=== PATIENT | female | born 1980 | race Caucasian/White ===

== ENCOUNTER 2018-07-10 14:02 | Observation (INO) | payer BC ==
[~2018-07-10] VITALS: Ht 177.8 cm; Wt 127.9 kg
[~2018-07-10 14:02] MED LIST: CIPRO500 MG PO; CLINDAMYCIN HC300 MG PO; LORTAB 7.5-5001 EACH PO
[2018-07-10] MEDS ORDERED: KETOROLAC TROMETHAMINE 30 MG/ML VIAL IV NR (15:15)
[2018-07-10] MEDS ORDERED: SODIUM CHLORIDE 0.9% 1000ML 1,000 ML IV ONE (15:15)
[2018-07-10] MEDS ORDERED: SODIUM CHLORIDE 0.9% 1000ML 1,000 ML ONE (15:15)
[2018-07-10] MEDS ORDERED: ONDANSETRON HCL INJ 2MG/ML 2ML 2 MG/ML VIAL IV NR (15:30)
[2018-07-10 15:37] LABS: EOSINOPHILS % 0.1 % (0.0-6.0); HEMATOCRIT 42.6 % (34.2-44.1); HEMOGLOBIN 14.4 g/dL (12.0-16.0); LYMPHOCYTES % 1.6 % (18.0-39.1); MEAN CORPUSCULAR HEMOGLOBIN 28.6 pg (28-32); MEAN CORPUSCULAR HGB CONC 33.8 g/dL (31-35); MEAN CORPUSCULAR VOLUME 84.7 fL (81-99); MONOCYTES % 0.9 % (4.4-11.3); PLATELET COUNT 411 x10e3/uL (140-360); RED BLOOD COUNT 5.03 x10e6/uL (3.6-5.1); RED CELL DISTRIBUTION WIDTH 13.5 % (11.7-14.4)
[2018-07-10 15:52] LABS: BILIRUBIN,URINE NEGATIVE (NEGATIVE); CLARITY,URINE HAZY (CLEAR); COLOR,URINE YELLOW (YELLOW); KETONES,URINE 3+ (NEGATIVE); LEUKOCYTE ESTERASE ,URINE NEGATIVE (NEGATIVE); NITRITE,URINE NEGATIVE (NEGATIVE); PROTEIN,URINE DIPSTICK NEGATIVE (NEGATIVE); URINE UROBILINOGEN 0.2 mg/dL (0.2 - 1)
[2018-07-10 15:53] LABS: PREGNANCY TEST, URINE NEGATIVE (NEGATIVE)
[2018-07-10 15:57] LABS: AMORPHOUS SEDIMENT,URINE MODERATE (FEW); BACTERIA,URINE MANY /HPF; EPITHELIAL CELLS,URINE MANY /LPF; MUCUS,URINE MODERATE (RARE)
[2018-07-10] MEDS ORDERED: MORPHINE SULFATE INJ 4 MG/ML INJ 1ML ONE (15:58)
[2018-07-10 15:59] LABS: ALANINE AMINOTRANSFERASE 75 IU/L (0-55); ALBUMIN/GLOBULIN RATIO 1.1 (0.8-2.0); ALKALINE PHOSPHATASE 100 IU/L (40-150); ANION GAP 17.6 mmol/L (8-16); BLOOD UREA NITROGEN 12 mg/dL (7-26); BUN/CREATININE RATIO 16 (6-25); CALCIUM 10.5 mg/dL (8.4-10.2); CARBON DIOXIDE 18 mmol/L (22-29); CHLORIDE 105 mmol/L (98-107); CREATININE, SERUM 0.76 mg/dL (0.57-1.11); EST GLOMERULAR FILTRATION RATE > 60 ML/MIN (60-); GLUCOSE 133 mg/dL (74-118); POTASSIUM 3.6 mmol/L (3.5-5.1); SODIUM 137 mmol/L (136-145)
[2018-07-10] MEDS ORDERED: MORPHINE SULFATE INJ 4 MG/ML INJ 1ML IV NR ×2 (16:00→19:00)
[2018-07-10] MEDS ORDERED: SODIUM CHLORIDE 0.9% 50ML 50 ML ONE (17:22)
[2018-07-10] MEDS ORDERED: IOPAMIDOL 370 MG/ML 200 ML INFUS..BTL INJ ONE (17:22)
--- NOTE | 2018-07-10 17:28 | Diagnostic Imaging Report ---
EXAMINATION: CT of the abdomen and pelvis with contrast. TECHNIQUE: Helical CT images of the abdomen and pelvis were performed from the lung bases to the lesser trochanters after the intravenous administration of 100 cc of Omnipaque 300 and the oral administration of none. Coronal and sagittal reformatted images were obtained.Dose modulation, iterative reconstruction, and/or weight based adjustment of the mA/kV was utilized to reduce the radiation dose to as low as reasonably achievable. COMPARISON: None. CLINICAL HISTORY:Severe abdominal pain DISCUSSION: ABDOMEN/PELVIS: LOWER THORAX:Unremarkable. HEPATOBILIARY: No focal hepatic lesions. No intra-or extrahepatic biliary ductal dilation. The gallbladder is normal. SPLEEN: No splenomegaly. PANCREAS: No focal masses or ductal dilatation. ADRENALS: No adrenal nodules. KIDNEYS/URETERS: No hydronephrosis, stones, or solid mass lesions. PELVIC ORGANS/BLADDER: The bladder is normal. PERITONEUM/RETROPERITONEUM: No free air or fluid. LYMPH NODES: No intra-abdominal, retroperitoneal, pelvic or inguinal lymphadenopathy. VESSELS: The celiac trunk,superior and inferior mesenteric and bilateral renal arteries are patent The portal, superior mesenteric and splenic veins are patent. GI TRACT: Appendix mildly dilated measuring 9 mm with adjacent stranding. Lap Band appropriate position. BONES AND SOFT TISSUE: No bony destructive lesions. No soft tissue abnormalities. IMPRESSION: Acute uncomplicated appendicitis. Signed by: Dr. Cash Rosenthal M.D. on 07/10/2018 5:25 PM
[2018-07-10] MEDS ORDERED: CEFTRIAXONE SOD 1 GM/NS 50 ML 50 ML IV ONE (18:45)
--- NOTE | 2018-07-10 19:27 | NUR ---
report to armani
--- OUTSIDE RECORDS SUMMARY | 2018-07-10 19:37 | XMS REPORT ---
Author Author [facility] Address Unknown Phone Unavailable Care Team Providers Care Tooth Polisher Name Role Phone Mary CM Unavailable Unavailable Problems This patient has no known problems. Allergies, Adverse Reactions, Alerts This patient has no known allergies or adverse reactions. Medications This patient has no known medications. Results Test Description Test Time Test Comments Text Results Atomic Results Result Comments CT ABDOMEN/PELVIS W 2018-07-10 17:21:00 [facility] [address] [place] [address] Patient Name: LAVELLE KRAUSE MR #: [id number] : 1980 Age/Sex: 37/F Req #: [id number] Adm Physician: Ordered by: DESIREE CM MD Report #: [id number] Location: ER Room/Bed: Procedure: [id number] CT/CT ABDOMEN/PELVIS W Exam Date: Exam Time: REPORT STATUS: Signed EXAMINATION: CT of the abdomen and pelvis with contrast. TECHNIQUE: Helical CT images of the abdomen and pelvis were performed from the lung bases to the lesser trochanters after the intravenous administration of 100 cc of Omnipaque 300 and the oral administration of none. Coronal and sagittal reformatted images were obtained.Dose modulation, iterative reconstruction, and/or weight based adjustment of the mA/kV was utilized to reduce the radiation dose to as low as reasonably achievable. COMPARISON: None. CLINICAL HISTORY:Severe abdominal pain DISCUSSION: ABDOMEN/PELVIS: LOWER THORAX:Unremarkable. HEP ATOBILIARY: No focal hepatic lesions. No intra-or extrahepatic biliary ductal dilation. The gallbladder is normal. SPLEEN: No splenomegaly. PANCREAS: No focal masses or ductal dilatation. ADRENALS: No adrenal nodules. KIDNEYS/URETERS: No hydronephrosis, stones, or solid mass lesions. PELVIC ORGANS/BLADDER: The bladder is normal. PERITONEUM/RETROPERITONEUM: No free air or fluid. LYMPH NODES: No intra- abdominal, retroperitoneal, pelvic or inguinal lymphadenopathy. VESSELS: The celiac trunk,superior and inferior mesenteric and bilateral renal arter ies are patent The portal, superior mesenteric and splenic veins are patent. GI TRACT: Appendix mildly dilated measuring 9 mm with adjacent stranding. Lap Band appropriate position. BONES AND SOFT TISSUE: No bony destructive lesions. No soft tissue abnormalities. IMPRESSION: Acute uncomplicated appendicitis. Signed by: Dr. Franca Olvera M.D. on 07/10/2018 5:25 PM Dictated By: FRANCA OLVERA MD 172 Transcribed By: ULICES on 07/10/181724 COPY TO: DESIREE CM MD
[2018-07-10 20:00] VITALS: BP 136/94
[2018-07-10] MEDS ORDERED: ACETAMINOPHEN 325 MG TAB PO PRN (20:00)
--- NOTE | 2018-07-10 20:00 | NUR ---
Got report from Jenny, ER nurse. Patient came to unit via wheelchair. Patient is A&Ox3. Call light within reach.
[2018-07-10 20:34] VITALS: BP 136/94
[2018-07-10 21:00] VITALS: BP 136/94
[2018-07-10] MEDS: SODIUM CHLORIDE 0.9% 1000ML 1,000 ML IV SCH (21:33)
[2018-07-10] MEDS: PIPER-TAZ 3.375 GM 50 ML IV SCH (21:33)
[2018-07-10] MEDS: HYDROMORPHONE 2MG/ML 2 MG/ML ML IV PRN (21:37)
[2018-07-10] MEDS: ONDANSETRON HCL INJ 2MG/ML 2ML 2 MG/ML VIAL IV PRN (21:37)
[2018-07-11] VITALS (8 sets, daily range): BP systolic 109–133; BP diastolic 55–72
[2018-07-11] MEDS: HYDROMORPHONE 2MG/ML 2 MG/ML ML IV PRN ×4 (01:20→17:12)
[2018-07-11] MEDS: PIPER-TAZ 3.375 GM 50 ML IV SCH ×3 (05:45→21:10)
[2018-07-11] MEDS: ONDANSETRON HCL INJ 2MG/ML 2ML 2 MG/ML VIAL IV PRN (05:45)
[2018-07-11] MEDS: SODIUM CHLORIDE 0.9% 1000ML 1,000 ML IV SCH ×3 (06:00→21:10)
--- NOTE | 2018-07-11 07:02 | NUR ---
Gave report to oncoming nurse. Call light within reach. patient in bed.
--- NOTE | 2018-07-11 07:45 | NUR ---
patient leaving unit for procedure, alert and oriented.
[2018-07-11] MEDS ORDERED: BUPIVACAINE HCL 0.5% INJ 30 ML VIAL INJ ONE (08:29)
[2018-07-11] MEDS ORDERED: ONDANSETRON HCL INJ 2MG/ML 2ML 2 MG/ML VIAL IV PRN (09:30)
[2018-07-11] MEDS ORDERED: MORPHINE SULFATE 5 MG/ML VIAL IV PRN (09:30)
[2018-07-11] MEDS ORDERED: HYDROMORPHONE 2MG/ML 2 MG/ML ML ONE (09:58)
--- NOTE | 2018-07-11 10:36 | NUR ---
patient returned to floor via stretcher, alert and oriented. call guillen within reach and bed in lowest position.
--- NOTE | 2018-07-11 13:55 | Consultation ---
DATE OF CONSULTATION: 07/11/2018 HISTORY OF PRESENT ILLNESS: The patient is a 37-year-old female, who presents with complaints of abdominal pain which started yesterday. The patient says the pain is in right lower quadrant. She has had associated nausea. She came to the emergency room. Evaluation with CT scan of the abdomen and pelvis revealed findings suggestive of acute appendicitis. The patient has not had similar symptoms in the past. PAST MEDICAL HISTORY: Significant for previous lap band and bunion surgery. She has no chronic medical problems. ALLERGIES: SULFA AND THERE WERE NO HOME MEDICATIONS. FAMILY HISTORY: Noncontributory. SOCIAL HISTORY: The patient does not smoke cigarettes or drink alcohol. REVIEW OF SYSTEMS: As stated above, otherwise was negative. PHYSICAL EXAMINATION: GENERAL: The patient is awake and alert, in no distress. VITAL SIGNS: Normal. She is afebrile. HEENT: Unremarkable. Sclerae are not icteric. NECK: Supple. No masses. LUNGS: Equal breath sounds are clear bilaterally. CARDIAC: Regular rate and rhythm. Normal S1, S2 without murmur, S3, or S4. There is no jugular venous distention. ABDOMEN: Tender in the right lower quadrant with signs of peritonitis localized to right lower quadrant. There is no mass. EXTREMITIES: Warm. There was no edema. Pulses were palpable. NEUROLOGIC: Intact. ASSESSMENT: A 37-year-old female with acute appendicitis. She will benefit from appendectomy. She will plan to schedule for today. Procedure was explained to the patient including risks, benefits, and alternatives. She understands the procedure. She had the opportunity to ask questions. She is aware of the possible need for open surgery. Thank you for asking us see Ms. Coppola. MD JOSEPH Peres/MODL /[id number]
[2018-07-11] MEDS ORDERED: DESFLURANE 240 ML BTL INH ONE (14:06)
[2018-07-11] MEDS ORDERED: SUCCINYLCHOLINE 200 MG/10 ML SYR ONE (14:06)
[2018-07-11] MEDS ORDERED: DEXAMETHASONE SOD PHOS INJ 4 MG/ML VIAL ONE (14:06)
[2018-07-11] MEDS ORDERED: LIDOCAINE HCL 2% LOCAL INJ 5 ML SDV VIAL INJ ONE (14:06)
[2018-07-11] MEDS ORDERED: PROPOFOL IV EMULSION 10 MG/ML 20 ML VIAL ONE (14:06)
[2018-07-11] MEDS ORDERED: ONDANSETRON HCL INJ 2MG/ML 2ML 2 MG/ML VIAL ONE (14:06)
[2018-07-11] MEDS ORDERED: MIDAZOLAM HCL 2 MG/2 ML VIAL ONE (14:16)
[2018-07-11] MEDS ORDERED: FENTANYL CITRATE/PF 100MCG/2 ML INJ ONE (14:16)
--- NOTE | 2018-07-11 15:36 | Operative Report ---
DATE OF PROCEDURE: 07/11/2018 SURGEON: Yemi Lowe MD PREOPERATIVE DIAGNOSIS: Acute appendicitis. POSTOPERATIVE DIAGNOSIS: Acute appendicitis. PROCEDURES: Diagnostic laparoscopy, laparoscopic appendectomy. MENTAL RETARDATION AIDE: None. ANESTHESIA: General. INDICATIONS AND FINDINGS: The patient is a 37-year-old female, who presents with complaints of abdominal pain for one day. Workup revealed probable acute appendicitis. Surgery, patient with acutely inflamed retrocecal appendicitis. TECHNIQUE: After adequate general endotracheal anesthesia with the patient in supine position the abdomen was prepped and draped in sterile fashion with ChloraPrep solution. Skin in the umbilicus was infiltrated with 0.5% Marcaine. Incision made in the umbilicus, abdominal wall was elevated and Veress needle was introduced. Pneumoperitoneum was then created. A 10 mm trocar and cannula was then passed through the umbilical wound. Laparoscopic camera was introduced. Initial laparoscopy revealed no free fluid. Liver appeared normal. The catheter from the lap band was seen. A 12 mm trocar and cannula was placed suprapubically and a 5 mm trocar and cannula placed in the right upper quadrant. Cecum was identified. The appendix was seen to be retrocecal. The cecum was mobilized by dividing the peritoneal attachments. The base of the appendix was identified and cecum was elevated. A window was created between the base of the appendix and mesoappendix. The base of the appendix was divided close to the cecum with Endo-EDMOND stapler. The mesoappendix was then divided with LigaSure device freeing the appendix completely. Once it was completely free, it was placed into an Endopouch and brought out through the suprapubic cannula. Care was taken to not touch the abdominal wall. The appendectomy was inspected for hemostasis, which was seen to be adequate. It was irrigated with saline. All fluid aspirated, inspected once again for hemostasis which was seen to be adequate. Instruments and cannulas were then removed. Pneumoperitoneum was evacuated. Wounds were then closed. Fascia in the umbilical and suprapubic wounds closed with 0-Vicryl. Skin to all wounds closed with bar. Sterile dressings applied to each wound. The patient tolerated the procedure well. Estimated blood loss was 15 mL. There were no complications. All counts were correct. The patient was taken to the recovery room in satisfactory condition. MD JOSEPH Peres/BRITL /[id number] cc: Abilio Kay MD
[2018-07-11] MEDS: HYDROCODONE/APAP 5MG-325MG TAB PO PRN ×2 (18:42→23:05)
--- NOTE | 2018-07-11 18:45 | NUR ---
rounded with swaging machine adjuster nurse, patient aware of change. call guillen within reach and bed in lowest position.
[2018-07-12 00:05] VITALS: BP_SYST 106; BP_SYST 149; BP_DIAS 57; BP_DIAS 71
[2018-07-12 04:58] VITALS: BP 113/57
[2018-07-12] MEDS: PIPER-TAZ 3.375 GM 50 ML IV SCH (05:03)
[2018-07-12] MEDS: HYDROCODONE/APAP 5MG-325MG TAB PO PRN ×3 (05:07→12:32)
[2018-07-12 07:00] VITALS: BP 131/71
--- NOTE | 2018-07-12 07:40 | NUR ---
report received from shift commander nurse, patient aware of change and in no distress. call guillen within reach and bed in lowest position.
[2018-07-12] MEDS: SODIUM CHLORIDE 0.9% 1000ML 1,000 ML IV SCH (12:00)
[2018-07-12 12:35] VITALS: BP 144/67
[2018-07-12] MEDS ORDERED: ULTRACET TABLE1 EACH PO (12:48)
--- NOTE | 2018-07-12 13:00 | NUR ---
patient alert and oriented. discharge instructions given at this time, patient verbalized understanding. IV discontinued, catheter in tact and small dressing applied. Patient refused wheelchair assistance and will be escorted to personal auto for significant other to drive home.
--- NOTE | 2018-07-14 05:42 | Discharge Summary ---
DISCHARGE DIAGNOSES: 1. Acute appendicitis. 2. Status post laparoscopic appendectomy with Dr. Lowe. COMPLICATIONS: None. DISCHARGE FOLLOW UP: In [address] Lowe. HISTORY OF PRESENT ILLNESS AND HOSPITAL COURSE: See hospital chart for full details. The patient is a young lady who presented lady with acute abdominal pain, where she is found to have acute appendicitis. She was placed on IV antibiotics. The pain did not resolve and was then taken to the OR by Dr. Lowe who performed a laparoscopic appendectomy without any complications. She was monitored overnight postoperatively where she did very well, felt much better and she is able to be discharged home once Dr. Lowe felt it. Follow up in two weeks with Dr. Lowe. Please see hospital chart for full details. MD STEVE Nick/VANNESSA /[id number]
== END 2018-07-12 13:07 | disposition home or self-care (01) ==
LOC: ER 14:02 → ERHOLD 19:34 → IMCU 20:15 → MED/SURG 07-12 10:02
PROVIDERS: ADMIT Internal Medicine; ATTEND Internal Medicine
DX: K35.80 Unspecified acute appendicitis (principal)
CPT/HCPCS: 36415; 44970; 74177; 80053; 81001; 81025; 85025; 88304; 96374; 96375; 96376; 99284; G0378 ×3; J0696; J1100; J1170 ×2; J1885; J2001; J2250; J2270 ×2; J2405 ×2; J2543 ×3; J2704; J7030 ×3; Q9967

== ENCOUNTER 2018-11-01 11:03 | Emergency (ER) | payer BC ==
[~2018-11-01] VITALS: Ht 175.3 cm; Wt 117.9 kg
[~2018-11-01 11:03] MED LIST changes: +ULTRACET TABLE1 EACH PO
[2018-11-01] MEDS ORDERED: KETOROLAC TROMETHAMINE 60 MG/2 ML VIAL IM NR (11:15)
[2018-11-01] MEDS ORDERED: HYDROCODONE/APAP 10MG-325MG TAB PO NR (11:15)
[2018-11-01] MEDS ORDERED: CYCLOBENZAPRINE HCL 10 MG TAB PO NR (11:15)
[2018-11-01] MEDS ORDERED: LIDOCAINE 5% PATCH TP ONE (11:15)
[2018-11-01 11:31] LABS: BILIRUBIN,URINE NEGATIVE (NEGATIVE); CLARITY,URINE CLEAR (CLEAR); COLOR,URINE YELLOW (YELLOW); KETONES,URINE 1+ (NEGATIVE); LEUKOCYTE ESTERASE ,URINE NEGATIVE (NEGATIVE); NITRITE,URINE NEGATIVE (NEGATIVE); PROTEIN,URINE DIPSTICK TRACE (NEGATIVE); URINE UROBILINOGEN 0.2 mg/dL (0.2 - 1)
[2018-11-01 11:43] LABS: PREGNANCY TEST, URINE NEGATIVE (NEGATIVE)
--- NOTE | 2018-11-01 11:45 | NUR ---
D-DIMER DRAWN VIA LEFT HAND, WITH BUTTERFLY
[2018-11-01 11:56] LABS: BACTERIA,URINE FEW /HPF; EPITHELIAL CELLS,URINE FEW /LPF; MUCUS,URINE MODERATE (RARE); RBC,URINE 0-5 /HPF (0-5); WBC,URINE (MAN) 0-5 /HPF (0-5)
[2018-11-01 12:29] LABS: BASOPHILS % 0.1 % (0.0-1.0); EOSINOPHILS # (AUTO) 0.1 (0.0-0.4); EOSINOPHILS % 0.7 % (0.0-6.0); HEMOGLOBIN 13.5 g/dL (12.0-16.0); LYMPHOCYTES # (AUTO) 2.2 (1.0-3.2); LYMPHOCYTES % 29.1 % (18.0-39.1); MEAN CORPUSCULAR HEMOGLOBIN 28.1 pg (28-32); MEAN CORPUSCULAR HGB CONC 33.8 g/dL (31-35); MEAN CORPUSCULAR VOLUME 83.3 fL (81-99); MONOCYTES # (AUTO) 0.6 (0.2-0.8); NEUTROPHILS # (AUTO) 4.6 (2.1-6.9); NEUTROPHILS % 61.8 % (38.7-80.0); PLATELET COUNT 363 x10e3/uL (140-360); RED CELL DISTRIBUTION WIDTH 13.9 % (11.7-14.4)
[2018-11-01 12:34] LABS: ALANINE AMINOTRANSFERASE 45 IU/L (0-55); ALBUMIN 3.6 g/dL (3.5-5.0); ALBUMIN/GLOBULIN RATIO 1.3 (0.8-2.0); ALKALINE PHOSPHATASE 90 IU/L (40-150); ANION GAP 11.8 mmol/L (8-16); BLOOD UREA NITROGEN 17 mg/dL (7-26); BUN/CREATININE RATIO 25 (6-25); CALCIUM 9.9 mg/dL (8.4-10.2); CARBON DIOXIDE 23 mmol/L (22-29); CHLORIDE 108 mmol/L (98-107); CREATININE, SERUM 0.68 mg/dL (0.57-1.11); EST GLOMERULAR FILTRATION RATE > 60 ML/MIN (60-); GLUCOSE 107 mg/dL (74-118); POTASSIUM 3.8 mmol/L (3.5-5.1); SODIUM 139 mmol/L (136-145)
--- NOTE | 2018-11-01 12:59 | Diagnostic Imaging Report ---
EXAMINATION: CHEST 2 VIEWS INDICATION: ^r/o pne ^[id number] ^[id number] COMPARISON: None FINDINGS: PA and lateral views TUBES and LINES: None. LUNGS: Lungs are well inflated. There is no evidence of pneumonia or pulmonary edema. PLEURA: No pleural effusion or pneumothorax. HEART AND MEDIASTINUM: The cardiomediastinal silhouette is unremarkable. BONES AND SOFT TISSUES: No acute osseous lesion. Soft tissues are unremarkable. UPPER ABDOMEN: No free air under the diaphragm. Gastric band in place. IMPRESSION: No acute thoracic abnormality. Signed by: Dr. Waylon Christianson MD on 11/01/2018 12:56 PM
== END 2018-11-01 13:16 | disposition home or self-care (01) ==
LOC: ER 11:03
DX: M54.5 Low back pain (principal); G89.29 Other chronic pain; E03.9 Hypothyroidism, unspecified; E28.2 Polycystic ovarian syndrome; Z98.84 Bariatric surgery status
CPT/HCPCS: 36415; 71046; 80053; 81001; 81025; 85025; 85379; 93005; 99284; J1885